=== PATIENT | female | born 1950 | race Hispanic/Latino ===

== ENCOUNTER → 2019-06-19 14:00 | Outpatient (CLI) | payer MEDICARE, OTHER, SELFPAY | PROVIDERS: PCP Internal Medicine; Visit Provider Internal Medicine | DX: Z13.820 Encounter for screening for osteoporosis (principal); M85.852 Other specified disorders of bone density and structure, left thigh; Z78.0 Asymptomatic menopausal state; E11.9 Type 2 diabetes mellitus without complications | CPT/HCPCS: 77080 ==

== ENCOUNTER → 2019-07-17 07:47 | Outpatient (CLI) | payer MEDICARE, OTHER, SELFPAY ==
--- NOTE | 2019-07-17 | DI.NM.S_ITS ---
PROCEDURE: NM UPTAKE AND SCAN RADIOPHARMACEUTICAL: 400 ?Ci I-123 sodium iodide by mouth. INDICATIONS: Thyrotoxicosis TECHNIQUE: I-123 sodium iodide was administered orally. Anterior neck images were obtained, and iodine uptake by the thyroid gland calculated using horticulture/floriculture teacher's software. COMPARISON: None. FINDINGS: Morphology: The thyroid gland has normal morphology and uniform activity. No 'cold' or 'hot' thyroid nodules are identified. Uptake: 6 hour thyroid uptake is 31.5%; normal ranges are from 6-18%. 24 hour thyroid uptake is 45.7%; normal ranges are from 10-30%. IMPRESSION: Abnormal increased 6 hour and 24 hour thyroid uptake. Dictated by: Thais Blake MD, PhD on 07/18/2019 at 15:04 Approved by: Thais Blake MD, PhD on 07/18/2019 at 15:06
== END ==
PROVIDERS: PCP Internal Medicine; Visit Provider Internal Medicine
DX: E05.90 Thyrotoxicosis, unspecified without thyrotoxic crisis or storm (principal)
CPT/HCPCS: 78014; A9516

== ENCOUNTER → 2020-02-24 14:37 | Outpatient (CLI) | payer MEDICARE, OTHER, SELFPAY ==
[2020-02-25 08:16] LABS: COVID19 Sendout Not Detected (Not Detect)
== END ==
PROVIDERS: PCP Internal Medicine; Visit Provider Nurse Practitioner
DX: Z01.812 Encounter for preprocedural laboratory examination (principal)
CPT/HCPCS: 87635

== ENCOUNTER → 2022-06-12 09:04 | Outpatient (CLI) | payer MEDICARE, OTHER, SELFPAY ==
--- NOTE | 2022-06-12 | DI.RAD.S_ITS ---
PROCEDURE: FL BARIUM SWALLOW INDICATIONS: DYSPHAGIA COMPARISON: None. FINDINGS: Function: There is normal esophageal peristalsis. Mild gastroesophageal reflux was elicited joint exam. A calibrated barium tablet was given. It was transiently obstructed at the gastroesophageal junction. Gastroesophageal junction is mildly narrowed. The pill eventually went through the esophagus into the stomach. Morphology: There is normal mucosal morphology. A small hiatal hernia is present. No esophageal strictures, extrinsic mass effects, or diverticula. Limited images of the stomach demonstrate normal appearance. IMPRESSION: 1. Small hiatal hernia. 2. Mild gastroesophageal reflux. 3. Mild narrowing at the GE junction and transient obstruction of a calibrated barium pill. Recommend EGD for follow-up evaluation. Dictated by: Mary Abraham M.D. on 06/12/2022 at 10:14 Approved by: Mary Abraham M.D. on 06/12/2022 at 10:17
== END ==
PROVIDERS: PCP Nurse Practitioner Family; Referring Provider Nurse Practitioner Family; Visit Provider Nurse Practitioner Family
DX: R13.10 Dysphagia, unspecified (principal); K44.9 Diaphragmatic hernia without obstruction or gangrene
CPT/HCPCS: 74220

== ENCOUNTER → 2022-09-04 11:17 | Outpatient (CLI) | payer MEDICARE, OTHER, SELFPAY ==
[2022-09-04 14:10] LABS: COVID19 -Nasal RAPID Negative (Negative)
== END ==
PROVIDERS: PCP Nurse Practitioner Family; Visit Provider Surgery
DX: Z01.812 Encounter for preprocedural laboratory examination (principal); Z20.822 Contact with and (suspected) exposure to COVID-19
CPT/HCPCS: 87635; C9803

== ENCOUNTER 2022-09-07 09:32 | Day surgery (SDC) | payer MEDICARE, OTHER, SELFPAY ==
--- NOTE | 2022-09-07 | PATH_ITS ---
[facility] Accession Number: [id number] No. of containers..02 Tissue . 01 Material submitted: . PART A: gastrointestinal site - ANTRUM PART B: esophagus, E-G Junction - GE JUNCTION . 01 Diagnosis: A. Stomach, Antrum, Biopsy: Antral mucosa with mild chronic gastritis. Negative for Helicobacter by immunohistochemistry. Negative for intestinal metaplasia. Negative for dysplasia and malignancy. . B. 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 Negative for dysplasia and malignancy. MRV 09/09/2022 1039 Local . 01 Electronically signed: . Janene Melissa MD, Pathologist NPI- [id number] . 01 Gross description: . Part A: ANTRUM: Received in formalin are 2 fragment(s) of cooley, soft tissue measuring 0.3 x 0.2 x 0.1 cm to 0.2 x 0.1 x 0.1 cm submitted entirely in 1 cassette(s) Part B: GE JUNCTION: Received in formalin are 2 fragment(s) of cooley, soft tissue measuring 0.2 x 0.1 x 0.1 cm to 0.1 x 0.1 x 0.1 cm submitted entirely in 1 cassette(s) /CPE 09/08/2022 0552 Local . 01 Microscopic: . A. An immunohistochemical stain was performed to evaluate for Helicobacter organisms and is negative. The control stain showed appropriate reactivity. . * This test was developed and its performance characteristics determined by [facility]. It has not been cleared or approved by the U.S. Food and Drug Administration. The FDA has determined that such clearance or approval is not necessary. This test is used for clinical purposes. It should not be regarded as investigational or for research. . 01 Pathologist provided ICD-10: R13.10, K22.70 . 01 CPT . 571946, 061468, O51252 Specimen Comment: A courtesy copy of this report has been sent to [phone] Performed at: 01 [facility] [address] [place] [address], [place], [place] [id number] MD Abel Vu MD Phone: [phone]
[2022-09-07 09:56] VITALS: BP 117/73; PULSE 87; RESP 16; TEMP 36.2; O2SAT 98; BMI 22.1
[2022-09-07] MEDS: LACTATED RINGERS 1,000 ML 42 ML IV (10:15)
--- NOTE | 2022-09-07 10:18 | PM.HP.1 ---
History of Present Illness History of Present Illness Date Patient Seen: 09/07/22 Time Patient Seen: 10:18 Chief complaint: EGD Narrative: I reviewed my office note. No significant changes. Patient History Medical History DM II (diabetes mellitus, type II), controlled GERD (gastroesophageal reflux disease) Graves' disease in remission HTN (hypertension) Osteopenia Family & Social History Social History: household members spouse Tobacco & Substance use: Smoking Status Never smoker alcohol intake current alcohol intake frequency a few times a week Substance Use Type does not use Meds Home Medications and Allergies Home Medications Medication Instructions Recorded Confirmed Type atorvastatin 40 mg tablet (Lipitor) See Rx Instructions .Route .COMPLEX 09/07/22 09/07/22 History empagliflozin 10 mg tablet See Rx Instructions .Route .COMPLEX 09/07/22 09/07/22 History (Jardiance) lisinopril 10 mg tablet See Rx Instructions .Route .COMPLEX 09/07/22 09/07/22 History sitagliptin phos 50 mg-metformin See Rx Instructions .Route .COMPLEX 09/07/22 09/07/22 History ER 1,000 mg tablet,extend rel 24h mp (Janumet XR) Allergies Allergy/AdvReac Type Severity Reaction Status Date / Time No Known Drug Allergies Allergy Verified 09/07/22 10:15 Review of Systems Review of Systems ROS: Yes All systems reviewed with the patient and are negative except as otherwise documented Exam Vital Signs (past 8 hours): - 09/07/22 09:56 Temperature 97.2 F L Pulse Rate 87 Respiratory Rate 16 Blood Pressure 117/73 Pulse Oximetry 98 Oxygen Delivery Method Room Air Oxygen Delivery Method Room Air Const General: cooperative HENMT Head: normal to inspection Eyes General: appearance normal, both eyes and all related structures Neck Neck: normal visual inspection Chest Chest: normal inspection of the chest Resp Effort & Inspection: normal respiratory effort Cardio Rate: regular rate GI Inspection: normal to inspection Skin General: no rashes or lesions noted Neuro General: patient alert and patient awake Extrem General: normal to inspection and no pedal edema Psych Appearance: grossly normal Assessment & Plan Assessment & Plan narrative: 72-year-old female with intermittent dysphagia recently. She has an abnormal barium esophagram. EGD is pursued today. Time Spent With Patient Critical Care time: I spent a total of [] minutes of critical care time on this patient's care today; this time is exclusive of procedural time.
--- NOTE | 2022-09-07 10:19 | PM.PREOP ---
Pre-operative Note COVID-19 COVID-19 status: Negative Result date/Date tested (Pos, Neg/Pending): 09/04/22 Criteria for continued procedure: Possibility delay results in more complex future surgery or treatment Interval Note History & Physical reviewed/Exam performed by Physician: Yes Changes to H&P: No ASA Class (for procedural sedation): II
--- NOTE | 2022-09-07 11:19 | PM.OP.EGD ---
Operative Date/Time/Diagnoses Date of procedure: 09/07/22 Time of procedure: 11:19 Pre-op diagnosis: Dysphagia Post-op diagnosis: same Procedure & Clinicians Study performed: EGD with biopsies and wire guided Savary dilatation Same procedure as scheduled: Yes Indications: Dysphagia Surgeon: Gary Watts Procedure Notes SCOAP/Timeout: Done Procedure in detail: After the risks and benefits were explained, written and verbal informed consent was obtained. The patient was brought into the procedure room and placed into the left lateral decubitus position. Please see anesthesia note for sedation details. The scope was introduced into the mouth through the bite block and advanced under direct visualization to the 2nd portion of the duodenum. The scope was slowly withdrawn carefully examining the mucosa for any defects or lesions. Retroflexed views were accomplished in the stomach. The stomach was decompressed, the scope was then removed from the patient who tolerated the procedure well. During the initial endoscopy, the floppy tip wire was left in-situ. Dilatation was performed as described below. A second-look endoscopy was then accomplished to achieve GE junction biopsies and confirm the dilatation effect. Sedation minutes: 17 Complications: none Impression: 1. Duodenum: This was normal from the bulb through to the 2nd portion. 2. Stomach: No outlet obstruction no ulcers no mass lesions. Mild gastropathy was appreciated and antral biopsies were acquired for exclusion of H pylori. Retroflexed views of the LES were unremarkable. 3. Esophagus: The squamocolumnar junction correlated with the top of the gastric folds. There was only slight irregularity of the mucosa at the GE junction concerning for low-grade inflammation. I did not appreciate an obvious stricture or stenosis. The upper esophageal sphincter mechanism seemed relatively snug with initial intubation attempt. I elected to pursue wire guided Savary dilatation starting at 45 Indonesian proceeding to 48 Indonesian and then finally 51 Indonesian. There was minimal resistance with the 1st dilator and mild resistance with the final dilator. Second-look endoscopy indicated there was an appropriate rent through the mucosa of the upper esophageal sphincter. Additionally there was a small rent through the mucosa at the level of GE junction (36 cm from the incisors). During the 2nd look endoscopy GE junction biopsies were acquired. Endoscopic diagnosis 1. Mild gastropathy 2. Irregular GE junction status post empiric dilatation and biopsies 3. Tense upper esophageal sphincter mechanism with appropriate response to wire guided dilatation. Post-procedure Plan for aftercare: 1. Await histopathology. 2. Follow up GI clinic in 6-8 weeks to review response. Disposition: PACU
[2022-09-07 11:20] VITALS: BP 91/56; PULSE 75; RESP 12; TEMP 36.1; O2SAT 93
[2022-09-07 11:25] VITALS: BP 95/62; PULSE 83; RESP 15; O2SAT 94
[2022-09-07 11:30] VITALS: BP 101/62; PULSE 79; RESP 11; TEMP 36.4; O2SAT 95
[2022-09-07 11:35] VITALS: BP 104/64; PULSE 77; RESP 15; O2SAT 96
[2022-09-07 11:41] VITALS: BP 104/65; PULSE 76; RESP 13; O2SAT 96
== END 2022-09-07 11:48 | disposition home or self-care (01) ==
PROVIDERS: PCP Nurse Practitioner Family; Referring Provider Internal Medicine Gastroenterology; Visit Provider Internal Medicine Gastroenterology
PROC: 0DJ08ZZ Inspection of Upper Intestinal Tract, Via Natural or Artificial Opening Endoscopic (ICD-10-PCS; CPT 43235; principal; 2022-09-07 10:30)
DX: K22.2 Esophageal obstruction (principal); K31.9 Disease of stomach and duodenum, unspecified; K29.50 Unspecified chronic gastritis without bleeding; K22.70 Barrett's esophagus without dysplasia
CPT/HCPCS: 43239; 43248; J2704; J3010

== ENCOUNTER → 2024-03-29 12:13 | Outpatient (CLI) | payer MEDICARE, OTHER, SELFPAY ==
--- NOTE | 2024-03-29 12:15 | DI.RAD.S_ITS ---
PROCEDURE: XR DEXA AXIAL SKELETON INDICATIONS: OSTEOPENIA COMPARISON: [facility], CR, XR DEXA AXIAL SKELETON, 06/19/2019, 14:14. FINDINGS: Lumbar Spine: Bone mineral density 0.910 g/cm2, T score -1.3. There is interval 5.2% decrease in lumbar spine bone mineral density. Left Hip: Bone mineral density 0.716 g/cm2, T score -1.9. There is interval 3.4% decrease in left total hip bone mineral density. Left Femoral Neck: Bone mineral density 0.591 g/cm2, T score -2.3. There is interval 8.4% decrease in left femoral neck bone mineral density. Right Hip: Bone mineral density 0.801 g/cm2, T score -1.2. There is interval 6.5% increase in right total hip bone mineral density. Right Femoral Neck: Bone mineral density 0.627 g/cm2, T score -1.2. There is interval 8.3% decrease in right femoral neck bone mineral density. Fracture Risk Calculation (when applicable): 10-year fracture risk of a major osteoporotic fracture 14% and of a hip fracture 4.0%. (T score greater or equal to -1.0 to: NORMAL) (T score from -1.1 to -2.4: OSTEOPENIA) (T score less than or equal to -2.5: OSTEOPOROSIS) IMPRESSION: Osteopenia with increased 10 year fracture risk as described above. Follow-up guidelines as follows: Osteoporosis: Consider a repeat DEXA and Vertebral Fracture Assessment (VFA) exam in 2 years or sooner if medically necessary, to reassess this patient's status. Osteopenia: Consider a repeat DEXA in 2-3 years to reassess this patient's status, or if there is a new clinical indication. Normal: Consider a repeat DEXA in 5 years or sooner, or if there is a new clinical indication. All treatment decisions require clinical judgment and consideration of individual patient factors, including patient preferences, comorbidities, previous drug use, risk factors not captured in the FRAX model (e.g., frailty, falls, vitamin D deficiency, increased bone turnover, interval significant decline in bone density ) and possible under- or over-estimation of fracture risk by FRAX. In addition, the NOF Guide recommends that FDA-approved medical therapies be considered in postmenopausal women and men age >= 50 years with a: * Hip or vertebral (clinical or morphometric) fracture * T-score of <=-2.5 at the spine or hip * Ten-year fracture probability by FRAX of >= 3% for hip fracture or >=20% for major osteoporotic fracture. People with diagnosed cases of osteoporosis or at high risk for fracture should have regular bone mineral density tests. For patients eligible for Medicare, routine testing is allowed once every 2 years. The testing frequency can be increased to one year for patients who have rapidly progressing disease, those who are receiving or discontinuing medical therapy to restore bone mass, or have additional risk factors. Dictated by: Jay Samuels M.D. on 03/29/2024 at 18:47 Approved by: Jay Samuels M.D. on 03/29/2024 at 18:52
== END ==
PROVIDERS: Referring Provider Nurse Practitioner Family; Visit Provider Nurse Practitioner Family
DX: M85.89 Other specified disorders of bone density and structure, multiple sites
CPT/HCPCS: 77080

== ENCOUNTER 2024-07-13 08:55 | Day surgery (SDC) | payer MEDICARE, OTHER, SELFPAY ==
[2024-07-13 09:13] VITALS: BP 130/72; PULSE 84; RESP 16; TEMP 36.2; O2SAT 98
--- NOTE | 2024-07-13 09:27 | PM.HP.1 ---
History of Present Illness History of Present Illness Date Patient Seen: 07/13/24 Time Patient Seen: 09:27 Chief complaint: Colonoscopy Narrative: Lizabeth is a 74-year-old woman here for colonoscopy. Her last 1 was about 10 years ago with a [employer] base and was normal. Her father did have colon cancer in his 70s. [facility] Medical History DM II (diabetes mellitus, type II), controlled GERD (gastroesophageal reflux disease) Graves' disease in remission HTN (hypertension) Osteopenia Social History household members: spouse Smoking Status: Never smoker alcohol intake: current Meds Home Medications and Allergies Home Medications Medication Instructions Recorded Confirmed Type atorvastatin 40 mg tablet (Lipitor) See Rx Instructions .Route .COMPLEX 09/07/22 07/13/24 History empagliflozin 10 mg tablet See Rx Instructions .Route .COMPLEX 09/07/22 07/13/24 History (Jardiance) lisinopril 10 mg tablet See Rx Instructions .Route .COMPLEX 09/07/22 07/13/24 History sitagliptin phos 50 mg-metformin See Rx Instructions .Route .COMPLEX 09/07/22 07/13/24 History ER 1,000 mg tablet,extend rel 24h mp (Janumet XR) Allergies Allergy/AdvReac Type Severity Reaction Status Date / Time No Known Drug Allergies Allergy Verified 07/13/24 09:11 Exam Vital Signs (past 8 hours): - 07/13/24 09:13 Temperature 97.2 F L Pulse Rate 84 Respiratory Rate 16 Blood Pressure 130/72 Pulse Oximetry 98 Oxygen Delivery Method Room Air Oxygen Delivery Method Room Air Const General: No acute distress Assessment & Plan Assessment and plan (1) Colon cancer screening: Status: Acute Plan Colonoscopy Time-Based Coding :: [TOTAL MINUTES] spent with patient and on the chart (including review of chart, obtaining history, exam, reviewing outside data, placing orders, documenting exam and treatment plan, and counseling patient) on [DATE].
--- NOTE | 2024-07-13 09:44 | PM.OP.COLON ---
Operative Date/Time/Diagnoses Date of procedure: 07/13/24 Time of procedure: 09:44 Pre-op diagnosis: Colon cancer screening Post-op diagnosis: same Procedure & Clinicians Study performed: Colonoscopy Same procedure as scheduled: Yes Surgeon: Julio Hayes Procedure Notes Procedure in detail: Surgeon: Julio Hayes MD Anesthesia: Abby Benson CRNA Procedure: The patient was brought to the endoscopy suite, placed in left lateral decubitus position. The patient was connected to monitoring devices. A time-out was performed. Sedation was administered. Once the patient was adequately sedated, a digital rectal exam was performed and was normal. The scope was then inserted and advanced to the cecum where the appendiceal orifice was identified and photographed. The scope was then slowly withdrawn over greater than 6 minutes. The mucosa was thoroughly inspected. No abnormalities were identified. The scope was retroflexed in the rectum. No other abnormalities were found. The scope was straightened and removed. The patient was awakened and brought to recovery. Scope withdrawal time: 6 minutes Sedation time: 10 minutes EBL: 0 Findings: Normal colon Post-procedure Disposition: PACU
[2024-07-13 09:46] VITALS: BP 87/57; PULSE 87; RESP 14; TEMP 36.9; O2SAT 93
[2024-07-13 09:57] VITALS: BP 97/55; PULSE 88; RESP 18; TEMP 36.6; O2SAT 96
[2024-07-13 10:00] VITALS: BP 109/73; PULSE 97; RESP 16; O2SAT 6
== END 2024-07-13 10:17 | disposition home or self-care (01) ==
PROVIDERS: Referring Provider Surgery; Visit Provider Surgery
PROC: 0DJD8ZZ Inspection of Lower Intestinal Tract, Via Natural or Artificial Opening Endoscopic (ICD-10-PCS; CPT 45378; principal; 2024-07-13 10:00)
DX: Z12.11 Encounter for screening for malignant neoplasm of colon (principal); Z80.0 Family history of malignant neoplasm of digestive organs
CPT/HCPCS: G0105; J2704